=== PATIENT | female | born 1945 | race Caucasian/White ===

== ENCOUNTER 2016-10-31 18:54 | Emergency (ER) | payer MEDICARE ==
[~2016-10-31] VITALS: Wt 77.1 kg
[2016-10-31] MEDS ORDERED: OMEPRAZOLE D/R20 MG PO (19:04)
[2016-10-31 19:28] LABS: BILIRUBIN 1+ (NEGATIVE); BLOOD 2+ (NEGATIVE); CLARITY SL CLOUDY (CLEAR); COLOR YELLOW (YELLOW); GLUCOSE NEGATIVE (NEGATIVE); KETONE 2+ (NEGATIVE); LEUKO ESTERASE NEGATIVE (NEGATIVE); NITRITE NEGATIVE (NEGATIVE); PROTEIN 1+ (NEGATIVE); SPECIFIC GRAVITY 1.025 (1.005-1.030)
[2016-10-31 19:42] LABS: BASO % 0.3 % (0.0-1.0); HEMATOCRIT 38.9 % (37.0-47.0); HEMOGLOBIN 12.8 g/dl (12.0-16.0); IG # 0.1 10*3/uL (0.0-0.1); LYMPH # 0.8 10*3/uL (1.3-4.4); LYMPH % 10.8 % (27.0-41.0); MEAN CELL VOLUME 87.8 fl (81.0-99.0); MEAN CORPUSCULAR HGB 28.9 pg (27.0-31.0); MEAN CORPUSCULAR HGB CONC 32.9 g/dl (33.0-37.0); MEAN PLATELET VOLUME 9.8 fl (9.6-12.3); MONO # 0.4 10*3/uL (0.1-1.0); NEUT # 5.7 10*3/uL (2.3-7.9); NEUT % 82.2 % (47.0-73.0); PLATELET COUNT AUTOMATED 181 10*3/uL (130-400); RED BLOOD COUNT 4.43 10*6/uL (4.10-5.10); RED CELL DISTRI WIDTH 13.6 % (0-14.5)
[2016-10-31 19:49] LABS: URINE REFLEX COMMENT YES (NO)
[2016-10-31 19:59] LABS: ALBUMIN 3.1 gm/dl (3.1-4.5); ALKALINE PHOSPHATASE 205 U/L (45-117); BILIRUBIN, TOTAL 0.8 mg/dl (0.2-1.0); BUN 13 mg/dl (7-24); C-REACTIVE PROTEIN 9.35 MG/DL (0-0.3); CARBON DIOXIDE 26 mmol/L (21-32); CHLORIDE 102 mmol/L (98-107); EST GLOM FILT AFRICAN AMERICAN > 60 ml/min; GLUCOSE 135 mg/dL (65-99); POTASSIUM 3.4 mmol/L (3.5-5.1); SGOT/AST 180 IU/L (3-35); SGPT/ALT 142 U/L (12-78); SODIUM 137 mmol/L (136-145); TOTAL PROTEIN 6.8 gm/dL (6.4-8.2)
[2016-10-31] MEDS ORDERED: CIPRO500 MG PO (22:03)
== END 2016-10-31 21:57 | disposition home or self-care (01) ==
LOC: ED 18:54
PROVIDERS: Physician Assistant
DX: K57.92 Diverticulitis of intestine, part unspecified, without perforation or abscess without bleeding (principal); Z88.2 Allergy status to sulfonamides

== ENCOUNTER 2019-01-05 05:16 | Emergency (ER) | payer MEDICARE ==
[~2019-01-05] VITALS: Ht 160 cm; Wt 73.5 kg
--- NOTE | ~2019-01-05 | EKG ---
[place], [place] ELECTROCARDIOGRAM REPORT NAME: TANO TIJERINA UNIT #: [id number] ROOM: DOCTOR: EPIPHANY DRAFT REPORT BIRTHDATE: [birth year] [facility] Test Date: 2019-01-05 Test Time: 05:59:16 Pat Name: TANO TIJERINA Department: Room: Gender: F E M Assembler: : [id number] Requested By: REJI VARELA Order Number: [id number] Reading MD: Rodrigo Brock MD Measurements Intervals [place] Rate: 96 P: 43 CA: 179 QRS: -9 QRSD: 103 T: 18 QT: 315 QTc: 398 Interpretive Statements Sinus rhythm Probable left ventricular hypertrophy Electronically Signed On 01-07-2019 8:12:08 PDT by Rodrigo Brock MD CM:EKGRPT:ELECTROCARDIOGRAM REPORT [id number] REJI VARELA MD EPIPHANY DRAFT REPORT REJI VARELA MD
[~2019-01-05 05:16] MED LIST: CIPRO500 MG PO; OMEPRAZOLE D/R20 MG PO
[2019-01-05 06:12] LABS: BASO % 0.3 % (0.0-1.0); EOS % 0.3 % (1.0-4.0); HEMATOCRIT 39.5 % (37.0-47.0); HEMOGLOBIN 12.6 g/dl (12.0-16.0); LYMPH # 0.5 10*3/uL (1.3-4.4); LYMPH % 8.6 % (27.0-41.0); MEAN CELL VOLUME 92.9 fl (81.0-99.0); MEAN CORPUSCULAR HGB 29.6 pg (27.0-31.0); MEAN CORPUSCULAR HGB CONC 31.9 g/dl (33.0-37.0); MEAN PLATELET VOLUME 9.9 fl (9.6-12.3); MONO % 0.7 % (3.0-9.0); NEUT # 5.3 10*3/uL (2.3-7.9); NEUT % 89.3 % (47.0-73.0); PLATELET COUNT AUTOMATED 157 10*3/uL (130-400); RED BLOOD COUNT 4.25 10*6/uL (4.10-5.10); RED CELL DISTRI WIDTH 13.8 % (0-14.5)
[2019-01-05 06:18] LABS: INTERNATIONAL NORM RATIO 0.9 (2.0-3.5)
[2019-01-05 06:22] LABS: ALBUMIN 3.3 gm/dl (3.1-4.5); ALKALINE PHOSPHATASE 102 U/L (45-117); BUN 14 mg/dl (7-24); CHLORIDE 110 mmol/L (98-107); CREATININE 0.93 mg/dL (0.55-1.02); LIPASE 100 U/L (73-393); POTASSIUM 3.8 mmol/L (3.5-5.1); SGOT/AST 47 IU/L (3-35); SGPT/ALT 34 U/L (12-78); SODIUM 143 mmol/L (136-145); TOTAL PROTEIN 6.7 gm/dL (6.4-8.2)
[2019-01-05 06:39] LABS: TROPONIN I < 0.015 ng/ml (<0.045)
[2019-01-05 06:50] LABS: BILIRUBIN NEGATIVE (NEGATIVE); BLOOD TRACE-INTACT (NEGATIVE); CLARITY SL CLOUDY (CLEAR); COLOR YELLOW (YELLOW); GLUCOSE NEGATIVE (NEGATIVE); KETONE NEGATIVE (NEGATIVE); LEUKO ESTERASE NEGATIVE (NEGATIVE); NITRITE NEGATIVE (NEGATIVE); PH 5.5 (5.0-9.0); SPECIFIC GRAVITY 1.015 (1.005-1.030); UROBILINOGEN 0.2 E.U./dl (0.2-1.0)
[2019-01-05 07:01] LABS: BACTERIA TRACE; RBC 0-2 rbc/hpf (0-2)
[2019-01-05] MEDS ORDERED: LEVOFLOXACIN500 MG PO (09:16)
[2019-01-05] MEDS ORDERED: FLAGYL500 MG PO ×2 (09:16→09:17)
== END 2019-01-05 09:30 | disposition home or self-care (01) ==
LOC: ED 05:16
PROVIDERS: Emergency Medicine Emergency Medical Services
DX: K57.92 Diverticulitis of intestine, part unspecified, without perforation or abscess without bleeding (principal); R11.2 Nausea with vomiting, unspecified; R50.9 Fever, unspecified; Z88.8 Allergy status to other drugs, medicaments and biological substances; Z88.2 Allergy status to sulfonamides; Z79.899 Other long term (current) drug therapy

== ENCOUNTER → 2021-07-19 | Outpatient (CLI) | payer MEDICARE ==
[~2021-07-19] MED LIST changes: +FLAGYL500 MG PO; +LEVOFLOXACIN500 MG PO
== END | disposition home or self-care (01) ==
LOC: COVID19 16:10
PROVIDERS: ATTEND Internal Medicine
DX: U07.1 COVID-19 (principal)

== ENCOUNTER → 2023-03-22 | Outpatient (CLI) | payer MEDICARE | END | disposition home or self-care (01) | LOC: US 12:51 | PROVIDERS: ATTEND Nurse Practitioner Family | DX: M79.652 Pain in left thigh (principal); Z78.9 Other specified health status ==